=== PATIENT | male | born 1945 | race African-American/Black ===

== ENCOUNTER 2017-06-16 14:41 | Inpatient (IN) | payer MEDICARE, OTHER ==
[~2017-06-16] VITALS: Ht 198.1 cm; Wt 153.3 kg
[2017-06-16] MEDS ORDERED: SODIUM CHLORIDE FLUSH 10 ML SYR INJ PRN ×2 (16:15→23:30)
[2017-06-16] MEDS ORDERED: GABAPENTIN300 MG PO (17:45)
[2017-06-16] MEDS ORDERED: POTASSIUM CHLO20 ME1 PO (18:59)
[2017-06-16] MEDS ORDERED: PIOGLITAZONE HC45 MG PO (19:00)
[2017-06-16] MEDS ORDERED: DIGOXIN125 MCG PO (19:00)
[2017-06-16] MEDS ORDERED: DOXEPIN HCL25 MG PO (19:01)
[2017-06-16] MEDS ORDERED: AMIODARONE HCL200 MG PO (19:01)
[2017-06-16] MEDS ORDERED: MAGNESIUM OXID400 MG PO (19:02)
[2017-06-16] MEDS ORDERED: ALBUTEROL SULFAT2 MG PO (19:02)
[2017-06-16] MEDS ORDERED: BUMETANIDE1 MG PO (19:03)
[2017-06-16] MEDS ORDERED: AMBIEN10 MG PO (19:03)
[2017-06-16] MEDS ORDERED: PANTOPRAZOLE SO20 MG PO (19:04)
[2017-06-16] MEDS ORDERED: XARELTO20 MG PO (19:04)
[2017-06-16] MEDS ORDERED: NOVOLIN N100 UNIT/1 SC (19:05)
[2017-06-16 19:27] LABS: BASOPHILS % 0.5 % (0.0-1.0); EOSINOPHILS # (AUTO) 0.3 (0.0-0.4); EOSINOPHILS % 3.3 % (0.0-6.0); HEMATOCRIT 39.7 % (38.2-49.6); HEMOGLOBIN 11.5 g/dL (14.0-18.0); LYMPHOCYTES # (AUTO) 1.2 (1.0-3.2); LYMPHOCYTES % 14.5 % (18.0-39.1); MEAN CORPUSCULAR HEMOGLOBIN 22.4 pg (28-32); MEAN CORPUSCULAR VOLUME 77.2 fL (81-99); MONOCYTES # (AUTO) 0.6 (0.2-0.8); MONOCYTES % 7.6 % (4.4-11.3); NEUTROPHILS # (AUTO) 5.9 (2.1-6.9); NEUTROPHILS % 73.7 % (38.7-80.0); PLATELET COUNT 304 x10e3/uL (140-360); RED BLOOD COUNT 5.14 x10e6/uL (4.3-5.7); RED CELL DISTRIBUTION WIDTH 17.5 % (11.7-14.4)
[2017-06-16 19:45] LABS: ALBUMIN 3.7 g/dL (3.5-5.0); ALBUMIN/GLOBULIN RATIO 0.8 (0.8-2.0); ANION GAP 16.6 mmol/L (8-16); CALCIUM 9.6 mg/dL (8.4-10.2); CREATININE, SERUM 2.11 mg/dL (0.72-1.25); POTASSIUM 4.6 mmol/L (3.5-5.1)
[2017-06-16 19:52] LABS: CREATINE KINASE MB 2.1 ng/mL (0.00-5.00); TROPONIN I 0.024 ng/mL (0-0.300)
[2017-06-16] MEDS ORDERED: METHYLPREDNISOLONE SOD SUCC 125 MG/2ML VIAL IV ONE (21:30)
--- NOTE | 2017-06-16 21:47 | Diagnostic Imaging Report ---
EXAM: CHEST SINGLE (PORTABLE), AP 1 view DATE: 06/16/2017 4:05 PM Time stamp on exam: 1936 hours INDICATION: Dyspnea COMPARISON: None FINDINGS: LINES/TUBES: None LUNGS: No consolidations or edema. Bibasilar atelectasis. PLEURA: No effusions or pneumothorax. HEART AND MEDIASTINUM: Normal size and contour. BONES AND SOFT TISSUES: No acute findings. IMPRESSION: Bibasilar atelectasis. Signed by: Dr. Jayde Torres M.D. on 06/16/2017 9:44 PM
[2017-06-16] MEDS ORDERED: ALBUTEROL/IPRATROPIUM 3 ML NEB NEB ONE (22:00)
[2017-06-17 00:18] LABS: ABG PH 7.34 (7.31-7.41)
[2017-06-17 00:19] LABS: ABG PCO2 79 mmHg (41-51)
[2017-06-17 00:22] LABS: ABG HCO3 43 mmol/L (23-28); ABG PO2 20 mmHg (80-105)
[2017-06-17] MEDS: CEFTRIAXONE SOD 1 GM VIAL IV SCH (01:50)
[2017-06-17] MEDS: AZITHROMYCIN 500MG/NS 250 ML 250 ML IV SCH (01:50)
[2017-06-17] MEDS: ALBUTEROL/IPRATROPIUM 3 ML NEB NEB SCH ×5 (03:00→18:55)
[2017-06-17] MEDS ORDERED: METHYLPREDNISOLONE SOD SUCC 125 MG/2ML VIAL IV SCH (06:00)
[2017-06-17] MEDS ORDERED: DEXTROSE 50% SYRINGE 50 ML IV PRN (06:15)
[2017-06-17] MEDS ORDERED: INSULIN REGULAR, HUMAN 100 UNIT/1 ML 3ML VIAL SQ SCH (07:30)
--- NOTE | 2017-06-17 11:52 | History and Physical ---
CHIEF COMPLAINT: Near respiratory failure, pneumonia, atrial fibrillation, acute exacerbation of COPD. HISTORY OF PRESENT ILLNESS: Patient is a pleasant 71-year-old male with extensive chronic medical problems including advanced COPD with chronic oxygen usage. He also has a colostomy from previous colon/bowel resection. At baseline the patient also has atrial fibrillation. He is on Xarelto. Along with that, he also has increasing fluid retention and shortness of breath for the past week. He came in with 3+ lower extremity edema. X-ray is unreliable due to the patient's morbid obesity, body habitus. The patient is having shortness of breath even with any exertion. He is having cough, fever. The patient is admitted. PAST MEDICAL HISTORY: COPD. Atrial fibrillation on Xarelto anticoagulant therapy. Obstructive sleep apnea. Oxygen-dependent COPD. Morbid obesity. Hypertension. Diabetes with neuropathy. Diabetes type 2 on insulin therapy. Insomnia. PAST SURGICAL HISTORY: Right lung partial resection secondary to prolapse. Partial colon resection secondary to volvulus and obstruction. SOCIAL HISTORY: Patient lives at home. He does not smoke or use alcohol. No recreational drug use. ALLERGIES: TO PENICILLIN. MEDICATIONS: Albuterol, amiodarone, Bumex, digoxin, doxepin, gabapentin, magnesium oxide, Humulin NPH insulin, Protonix, Actos, potassium, Xarelto and Ambien. REVIEW OF SYSTEMS: As mentioned. Shortness of breath. PND. Lower extremity edema bilaterally. Wheezing. Fever. No focal deficit complaint. PHYSICAL EXAMINATION: VITAL SIGNS: Temperature is 98. Blood pressure is 94/53. Pulse rate is 57. [id number]. GENERAL: The patient is stable, not in any distress at this time. Oxygen support, BiPAP. HEENT: Normocephalic, atraumatic, anicteric. NECK: Supple grossly. PULMONARY: Diminished breath sounds bilaterally with coarses, rhonchi and rales at the bases. CARDIOVASCULAR: Atrial fibrillation, rate controlled. ABDOMEN: Is soft. Positive bowel sounds. Positive colostomy with stool. EXTREMITIES: 3+ edema bilaterally. NEUROLOGIC: No focal deficit. LABORATORY: WBC is 8. Hemoglobin 11.5. Hematocrit is 39. Platelet is 304. Chemistry: Sodium is 1.45, potassium 4.6, chloride 96, bicarb 37, BUN is 42, creatinine 2.1. Glucose is 92. Chest x-ray showed atelectasis. IMPRESSION: 1. Acute exacerbation of chronic obstructive pulmonary disease with respiratory failure. The patient was using BiPAP. Much improved now. 2. Bibasilar pneumonia, most likely. 3. Congestive heart failure, most likely acute on chronic diastolic dysfunction exacerbation. 4. Morbid obesity. 5. Multiple chronic baseline problems. PLAN: 2D echocardiogram. CT of the chest without IV contrast. Continue with antibiotics. Diuresis. Nebulizer treatments. Antitussive medication. DVT prophylaxis. BiPAP as needed. Consultation with Dr. Joel Moncada. Continue with the patient's treatment at this time. Will monitor the patient closely. Job#: [id number] EV
[2017-06-17] MEDS: NPH, HUMAN INSULIN ISOPHANE 100 UNIT/1 ML 3ML VIAL SQ SCH ×2 (12:02→17:24)
[2017-06-17] MEDS: INSULIN REGULAR, HUMAN 100 UNIT/1 ML 3ML VIAL SQ SCH ×3 (12:02→20:59)
--- NOTE | 2017-06-17 12:21 | Diagnostic Imaging Report ---
EXAM: CT Chest WITHOUT contrast 06/17/2017 11:11 AM INDICATION: \S\sob \[id number] \S\[id number] COMPARISON: Chest radiograph from 06/16/2017 TECHNIQUE: Chest was scanned utilizing a multidetector helical scanner from the lung apex through the level of the adrenal glands without administration of IV contrast. Absence of intravenous contrast decreases sensitivity for detection of lymphadenopathy and vascular pathology. Coronal and sagittal reformations were obtained. Routine protocol was performed. IV CONTRAST: None COMPLICATIONS: None RADIATION DOSE: Total DLP: 927.6 mGy*cm Estimated effective dose: (DLP x 0.015 x size factor) mSv CTDIvol has been reviewed. It is below the limits set by the Radiation Protocol Committee (RPC). FINDINGS: LINES/ TUBES: None. LUNGS AND AIRWAYS: Bilateral centrilobular and paraseptal emphysema with few left apical bullous. Linear scarring in the right apex. Subsegmental atelectasis in both lower lobes. Mild diffuse bilateral groundglass opacities and septal thickening suggestive of interstitial edema. 2 mm calcified granuloma in the right lower lobe. Airways are normal. PLEURA: The pleural spaces are clear. HEART AND MEDIASTINUM: The thyroid gland is normal. No mediastinal, hilar or axillary lymphadenopathy. Cardiomegaly. There is no pericardial effusion. The thoracic aorta is normal in caliber and associated with moderate calcifications in the arch. The main pulmonary artery is enlarged measuring 3.8 cm in diameter and suggestive of pulmonary hypertension. UPPER ABDOMEN: 4.7 cm exophytic cyst in the upper pole of the right kidney. BONES: Remote posttraumatic deformity of the posterior right fourth rib. SOFT TISSUES: Unremarkable. IMPRESSION: Cardiomegaly with associated mild pulmonary edema. Bibasilar atelectasis and bilateral emphysema. No consolidations. Signed by: Dr. Aminah Oliveira M.D. on 06/17/2017 12:17 PM
[2017-06-17] MEDS: FUROSEMIDE INJ 10 MG/ML 4 ML VIAL IV SCH ×2 (13:10→13:19)
--- NOTE | 2017-06-17 14:22 | Consultation ---
DATE OF CONSULTATION: PULMONARY CONSULTATION REASON FOR THE CONSULT: Pneumonia and COPD. HPI: Mr. Hawthorne is a 71-year-old male who has 75 to [id number] smoking history, used to smoke 2 to 3 packs per day for 40 years and quit 11 years ago, presented with worsening shortness of breath, cough and wheezing going on for last few days, progressively getting worse. He has known COPD and is using inhalers at home. He denies any chest pain, nausea, vomiting or diarrhea. REVIEW OF SYSTEMS GENERAL: Denies any fever or chills. HEAD: Denies any head trauma, head injury. ENT: Denies any earache, nosebleed, throat pain. CVS: Denies any chest pain. RESPIRATORY: Shortness of breath. GI: Denies any nausea or vomiting. The rest of the review systems are negative except as in HPI. PAST MEDICAL HISTORY: Hypertension, atrial fibrillation, COPD, obstructive sleep apnea, patient use home oxygen. PAST SURGICAL HISTORY: Right partial lung resection secondary to collapse, colon resection, patient has history of volvulus. FAMILY AND SOCIAL HISTORY: He lives at home. Currently does not smoke, [id number] smoker. PHYSICAL EXAMINATION VITAL SIGNS: Temperature 98.8, pulse of 74, blood pressure 121/74, respiratory rate of 18, and O2 sat of patient is 99% on 4 liters. He uses BiPAP at night. HEENT: Head atraumatic, normocephalic. Pupils reactive. NECK: Supple. No JVD. CHEST: Wheezing bilaterally. HEART: S1, S2 audible. ABDOMEN: Soft, nontender. He has colostomy. EXTREMITIES: Trace pedal edema. NEUROLOGIC: Awake and alert, following commands and responding to questions appropriately. IMAGING DATA: CT of the chest, I have reviewed the images showing evidence of emphysema, no clear-cut evidence of pneumonia. ASSESSMENT/PLAN: A 71-year-old male with history of atrial fibrillation, chronic obstructive pulmonary disease, ex-smoker, [id number] smoker, presented with worsening shortness of breath, cough, wheezing. Patient has home oxygen. CURRENT PROBLEMS 1. Chronic obstructive pulmonary disease exacerbation. 2. Morbid obesity. 3. Atrial fibrillation. 4. Hypertension. 5. Acute kidney injury, unknown baseline creatinine. PLAN 1. I will continue the patient on nebulizer treatment, Rocephin, azithromycin, and Solu-Medrol. Patient is in acute kidney injury, management per primary team. He is on potassium b.i.d., which I will discontinue as patient is in renal failure. 1. BiPAP to be used in hours of sleep and as needed. 2. Oxygen to keep the O2 sat more than or equal to 92%. Thank you for this consult. Job#: [id number] SAK
[2017-06-17] MEDS: METHYLPREDNISOLONE SOD SUCC 125 MG/2ML VIAL IV SCH ×2 (15:02→22:35)
[2017-06-17] MEDS: GABAPENTIN 300 MG CAP PO SCH ×2 (15:02→20:47)
[2017-06-17] MEDS ORDERED: POTASSIUM CHLORIDE 20 MEQ TAB CR PO SCH (17:00)
[2017-06-17] MEDS: DOXEPIN HCL 25 MG CAP PO SCH (20:47)
[2017-06-17] MEDS: RIVAROXABAN 20 MG TABLET PO SCH (20:47)
[2017-06-17] MEDS: ZOLPIDEM TARTRATE 10 MG TAB PO PRN (20:48)
[2017-06-17] MEDS: ALBUTEROL SULFATE 2 MG TAB PO SCH (22:36)
[2017-06-18] MEDS: ALBUTEROL/IPRATROPIUM 3 ML NEB NEB SCH ×7 (00:10→23:30)
[2017-06-18] MEDS: AZITHROMYCIN 500MG/NS 250 ML 250 ML IV SCH (02:15)
[2017-06-18] MEDS: CEFTRIAXONE SOD 1 GM VIAL IV SCH (02:15)
[2017-06-18] MEDS: METHYLPREDNISOLONE SOD SUCC 125 MG/2ML VIAL IV SCH (05:35)
[2017-06-18 05:47] LABS: BASOPHILS % 0.1 % (0.0-1.0); HEMATOCRIT 33.2 % (38.2-49.6); LYMPHOCYTES # (AUTO) 0.8 (1.0-3.2); LYMPHOCYTES % 6.3 % (18.0-39.1); MEAN CORPUSCULAR HEMOGLOBIN 22.6 pg (28-32); MEAN CORPUSCULAR HGB CONC 30.1 g/dL (31-35); MEAN CORPUSCULAR VOLUME 75.1 fL (81-99); MONOCYTES # (AUTO) 0.5 (0.2-0.8); MONOCYTES % 3.9 % (4.4-11.3); NEUTROPHILS # (AUTO) 11.5 (2.1-6.9); NEUTROPHILS % 89.1 % (38.7-80.0); PLATELET COUNT 281 x10e3/uL (140-360); RED BLOOD COUNT 4.42 x10e6/uL (4.3-5.7); RED CELL DISTRIBUTION WIDTH 17.2 % (11.7-14.4)
[2017-06-18 06:07] LABS: ANION GAP 13.4 mmol/L (8-16); CALCIUM 8.7 mg/dL (8.4-10.2); CREATININE, SERUM 2.17 mg/dL (0.72-1.25); POTASSIUM 4.4 mmol/L (3.5-5.1)
[2017-06-18] MEDS: INSULIN REGULAR, HUMAN 100 UNIT/1 ML 3ML VIAL SQ SCH ×4 (07:52→21:48)
[2017-06-18] MEDS: FUROSEMIDE INJ 10 MG/ML 4 ML VIAL IV SCH ×2 (07:52→13:18)
[2017-06-18] MEDS: PANTOPRAZOLE SOD 40 MG TABEC PO SCH (07:52)
[2017-06-18] MEDS: AMIODARONE HCL 200 MG TAB PO SCH (08:30)
[2017-06-18] MEDS: DIGOXIN 0.125 MG TAB PO SCH (08:30)
[2017-06-18] MEDS: MAGNESIUM OXIDE 400 MG TAB PO SCH (08:30)
[2017-06-18] MEDS: GABAPENTIN 300 MG CAP PO SCH ×3 (08:30→21:48)
[2017-06-18] MEDS: NPH, HUMAN INSULIN ISOPHANE 100 UNIT/1 ML 3ML VIAL SQ SCH ×2 (08:30→17:10)
[2017-06-18] MEDS: ALBUTEROL SULFATE 2 MG TAB PO SCH ×2 (09:00→19:43)
[2017-06-18] MEDS: METHYLPREDNISOLONE SOD SUCC 40 MG/ML VIAL IV SCH ×2 (13:18→21:49)
[2017-06-18 17:36] VITALS: BP 115/59
[2017-06-18 17:41] VITALS: BP 115/59
[2017-06-18 20:00] VITALS: BP 106/65
[2017-06-18 21:00] VITALS: BP 106/65
[2017-06-18] MEDS: RIVAROXABAN 20 MG TABLET PO SCH (21:48)
[2017-06-18] MEDS: DOXEPIN HCL 25 MG CAP PO SCH (21:48)
[2017-06-18] MEDS: ZOLPIDEM TARTRATE 10 MG TAB PO PRN (21:49)
[2017-06-19] VITALS (7 sets, daily range): BP systolic 106–152; BP diastolic 56–81
[2017-06-19] MEDS ORDERED: SODIUM CHLORIDE 0.9% 250ML 250 ML ONE (00:21)
[2017-06-19] MEDS: CEFTRIAXONE SOD 1 GM VIAL IV SCH ×2 (00:32→22:53)
[2017-06-19] MEDS: AZITHROMYCIN 500MG/NS 250 ML 250 ML IV SCH ×2 (00:32→22:53)
[2017-06-19] MEDS: ALBUTEROL/IPRATROPIUM 3 ML NEB NEB SCH ×6 (03:00→23:20)
[2017-06-19] MEDS: METHYLPREDNISOLONE SOD SUCC 40 MG/ML VIAL IV SCH ×3 (06:32→21:10)
[2017-06-19 06:59] LABS: BASOPHILS % 0.1 % (0.0-1.0); HEMATOCRIT 33.3 % (38.2-49.6); HEMOGLOBIN 9.8 g/dL (14.0-18.0); LYMPHOCYTES # (AUTO) 0.6 (1.0-3.2); LYMPHOCYTES % 4.3 % (18.0-39.1); MEAN CORPUSCULAR HEMOGLOBIN 22.3 pg (28-32); MEAN CORPUSCULAR HGB CONC 29.4 g/dL (31-35); MEAN CORPUSCULAR VOLUME 75.7 fL (81-99); MONOCYTES # (AUTO) 0.7 (0.2-0.8); NEUTROPHILS # (AUTO) 12.1 (2.1-6.9); NEUTROPHILS % 88.7 % (38.7-80.0); PLATELET COUNT 280 x10e3/uL (140-360); RED CELL DISTRIBUTION WIDTH 17.5 % (11.7-14.4)
[2017-06-19] MEDS: PANTOPRAZOLE SOD 40 MG TABEC PO SCH (07:30)
[2017-06-19] MEDS: INSULIN REGULAR, HUMAN 100 UNIT/1 ML 3ML VIAL SQ SCH ×4 (07:30→21:10)
[2017-06-19 07:56] LABS: ANION GAP 15.3 mmol/L (8-16); CALCIUM 8.4 mg/dL (8.4-10.2); CREATININE, SERUM 1.82 mg/dL (0.72-1.25); POTASSIUM 4.3 mmol/L (3.5-5.1)
[2017-06-19] MEDS: FUROSEMIDE INJ 10 MG/ML 4 ML VIAL IV SCH ×2 (08:00→12:00)
[2017-06-19] MEDS: GABAPENTIN 300 MG CAP PO SCH ×3 (09:00→21:10)
[2017-06-19] MEDS: DIGOXIN 0.125 MG TAB PO SCH (09:00)
[2017-06-19] MEDS: AMIODARONE HCL 200 MG TAB PO SCH (09:00)
[2017-06-19] MEDS: NPH, HUMAN INSULIN ISOPHANE 100 UNIT/1 ML 3ML VIAL SQ SCH ×2 (09:00→17:00)
[2017-06-19] MEDS: MAGNESIUM OXIDE 400 MG TAB PO SCH (09:00)
[2017-06-19] MEDS: ALBUTEROL SULFATE 2 MG TAB PO SCH ×2 (09:00→17:00)
[2017-06-19] MEDS: RIVAROXABAN 20 MG TABLET PO SCH (21:10)
[2017-06-19] MEDS: DOXEPIN HCL 25 MG CAP PO SCH (21:10)
[2017-06-19] MEDS: ZOLPIDEM TARTRATE 10 MG TAB PO PRN (21:18)
[2017-06-20] VITALS (7 sets, daily range): BP systolic 113–133; BP diastolic 56–73
[2017-06-20] MEDS: ALBUTEROL/IPRATROPIUM 3 ML NEB NEB SCH ×5 (03:40→21:30)
[2017-06-20] MEDS: METHYLPREDNISOLONE SOD SUCC 40 MG/ML VIAL IV SCH ×2 (06:07→14:00)
[2017-06-20] MEDS: PANTOPRAZOLE SOD 40 MG TABEC PO SCH (07:30)
[2017-06-20] MEDS: INSULIN REGULAR, HUMAN 100 UNIT/1 ML 3ML VIAL SQ SCH ×4 (07:30→21:00)
[2017-06-20] MEDS: FUROSEMIDE INJ 10 MG/ML 4 ML VIAL IV SCH ×2 (08:00→12:00)
[2017-06-20] MEDS: GABAPENTIN 300 MG CAP PO SCH ×3 (09:00→17:54)
[2017-06-20] MEDS: ALBUTEROL SULFATE 2 MG TAB PO SCH ×2 (09:00→17:53)
[2017-06-20] MEDS: DIGOXIN 0.125 MG TAB PO SCH (09:00)
[2017-06-20] MEDS: NPH, HUMAN INSULIN ISOPHANE 100 UNIT/1 ML 3ML VIAL SQ SCH ×2 (09:00→17:00)
[2017-06-20] MEDS: AMIODARONE HCL 200 MG TAB PO SCH (09:00)
[2017-06-20] MEDS: MAGNESIUM OXIDE 400 MG TAB PO SCH (09:00)
[2017-06-20 13:13] LABS: ANION GAP 16.2 mmol/L (8-16); CALCIUM 8.5 mg/dL (8.4-10.2); CREATININE, SERUM 1.96 mg/dL (0.72-1.25); POTASSIUM 5.2 mmol/L (3.5-5.1)
[2017-06-20] MEDS ORDERED: SOD POLYSTYRENE SULFONATE SUSP 15 GM/60 ML BTL PO ONE (15:15)
--- NOTE | 2017-06-20 15:18 | Consultation ---
DATE OF CONSULTATION: June 20, 2017 NEPHROLOGY CONSULT REASON FOR THE CONSULT: Acute versus chronic kidney disease. HISTORY OF PRESENT ILLNESS: This is a 71-year-old male, very pleasant, who is known to have multiple medical problems including hypertension, COPD, AFib, obstructive sleep apnea on CPAP and 24-hour oxygen, ex-smoker, and as per the patient he was told he has CKD but he never made it to a kidney doctor. As an outpatient, he follows with Dr. Carmine Palencia as is primary care. He is admitted for a few days of worsening shortness of breath. He could not walk even from his bed to the bathroom without getting short of breath and dyspnea on minimal exertion along with orthopnea and cough with productive yellowish sputum. He came for further evaluation, for which he is admitted for COPD exacerbation, was put on BiPAP and now on oxygen, and he is getting antibiotics and being seen by Pulmonary. His creatinine was elevated. Thus we are consulted. REVIEW OF SYSTEMS: Negative otherwise. PAST MEDICAL HISTORY: As mentioned above. PAST SURGICAL HISTORY: Status post right partial lung resection secondary to atelectasis and collapse, colon resection secondary to volvulus with colostomy. FAMILY HISTORY: Positive for hypertension. SOCIAL HISTORY: Ex-smoker. No alcohol, no IV drug abuse. ALLERGIES: PENICILLIN. VITAL SIGNS: Blood pressure 121/58, heart rate is 83, temperature 97. PHYSICAL EXAMINATION GENERAL APPEARANCE: No acute distress x3. HEAD, EARS, EYES, NECK: No lymphadenopathy HEART: Regular rate and rhythm. LUNGS: Bibasilar rales. ABDOMEN: Soft, nontender. EXTREMITIES: +1 edema. LABS: His white count was 13.6, hemoglobin 9.8. ABGs: His pCO2 was 79 before putting him on BiPAP. His sodium 142 yesterday, potassium 4.3. His BUN is 16. Creatinine is 1.8, down from 2.1. His troponin negative. BNP 73. Albumin 3.7. ASSESSMENT AND PLAN 1. Acute versus chronic kidney disease. I am suspecting CKD in the setting of hypertension and diabetes, nephrosclerosis. The patient was told he has CKD and needs to follow with a kidney doctor, but he never made it to a nephrology clinic. I am going to call his PCP tomorrow, Dr. Carmine Palencia, to get some records about his baseline, his creatinine. At this time, creatinine came down from 2.1 to 1.8, relatively stable. Avoid nephrotoxins. Adjust antibiotics to current GFR. Check fraction excretion of sodium and renal ultrasound. 2. Chronic obstructive pulmonary disease exacerbation with productive cough. He is on antibiotics, Rocephin and azithromycin per Pulmonary, and nebulizer treatment, off the BiPAP on nasal cannula oxygen. 3. Diastolic congestive heart failure with pulmonary edema on CT scan. He is on Lasix 40 b.i.d., which we are going probably to titrate down by tomorrow. He was on Bumex as an outpatient. Add strict ins and outs, and the patient so far is recording multiple frequent urination in the urinal. Monitor urine output. 4. Electrolytes are within range. His potassium was 4.6 on admission. He is off KCl, now is 4.3. Monitor closely. He is on magnesium oxide, which we are going to check magnesium level tomorrow. 5. Atrial fibrillation, on Xarelto. 6. Blood pressure is controlled. 7. Diabetes, on insulin. Thank you for the consult. We will update the primary team for further recommendations. Job#: [id number] EV
[2017-06-20] MEDS: CEFEPIME HCL 1 GM VIAL IV SCH (17:53)
[2017-06-20] MEDS ORDERED: METHYLPREDNISOLONE SOD SUCC 40 MG/ML VIAL IV SCH (19:00)
[2017-06-20] MEDS: DOXEPIN HCL 25 MG CAP PO SCH (21:00)
[2017-06-20] MEDS: RIVAROXABAN 20 MG TABLET PO SCH (21:00)
[2017-06-20] MEDS: ZOLPIDEM TARTRATE 10 MG TAB PO PRN (21:19)
[2017-06-21] VITALS (8 sets, daily range): BP systolic 107–135; BP diastolic 57–70
[2017-06-21] MEDS: CEFEPIME HCL 1 GM VIAL IV SCH ×2 (05:00→17:25)
[2017-06-21] MEDS: ALBUTEROL/IPRATROPIUM 3 ML NEB NEB SCH ×4 (07:12→20:15)
[2017-06-21 07:20] LABS: HEMATOCRIT 35.1 % (38.2-49.6); HEMOGLOBIN 10.1 g/dL (14.0-18.0); LYMPHOCYTES # (AUTO) 0.5 (1.0-3.2); LYMPHOCYTES % 4.9 % (18.0-39.1); MEAN CORPUSCULAR HEMOGLOBIN 22.1 pg (28-32); MEAN CORPUSCULAR HGB CONC 28.8 g/dL (31-35); MONOCYTES % 9.1 % (4.4-11.3); NEUTROPHILS % 85.2 % (38.7-80.0); PLATELET COUNT 277 x10e3/uL (140-360); RED BLOOD COUNT 4.56 x10e6/uL (4.3-5.7); RED CELL DISTRIBUTION WIDTH 17.3 % (11.7-14.4)
[2017-06-21 07:39] LABS: ANION GAP 12.6 mmol/L (8-16); CALCIUM 8.4 mg/dL (8.4-10.2); CREATININE, SERUM 1.7 mg/dL (0.72-1.25); MAGNESIUM 2.8 MG/DL (1.3-2.1); PHOSPHORUS 3.8 MG/DL (2.3-4.7); POTASSIUM 4.6 mmol/L (3.5-5.1)
[2017-06-21] MEDS: NPH, HUMAN INSULIN ISOPHANE 100 UNIT/1 ML 3ML VIAL SQ SCH ×2 (09:00→16:52)
[2017-06-21] MEDS: METHYLPREDNISOLONE SOD SUCC 40 MG/ML VIAL IV SCH ×2 (09:04→17:25)
[2017-06-21] MEDS: FUROSEMIDE INJ 10 MG/ML 4 ML VIAL IV SCH ×2 (09:04→12:55)
[2017-06-21] MEDS: DOXYCYCLINE HYCLATE TABLET 100 MG TAB PO SCH ×2 (09:04→17:25)
[2017-06-21] MEDS: MAGNESIUM OXIDE 400 MG TAB PO SCH (09:04)
[2017-06-21] MEDS: AMIODARONE HCL 200 MG TAB PO SCH (09:04)
[2017-06-21] MEDS: INSULIN REGULAR, HUMAN 100 UNIT/1 ML 3ML VIAL SQ SCH ×4 (09:04→21:19)
[2017-06-21] MEDS: PANTOPRAZOLE SOD 40 MG TABEC PO SCH (09:04)
[2017-06-21] MEDS: ALBUTEROL SULFATE 2 MG TAB PO SCH ×2 (09:04→17:25)
[2017-06-21] MEDS: GABAPENTIN 300 MG CAP PO SCH ×3 (09:04→21:19)
[2017-06-21] MEDS: DIGOXIN 0.125 MG TAB PO SCH (09:04)
--- NOTE | 2017-06-21 15:45 | Diagnostic Imaging Report ---
EXAM: Renal Ultrasound INDICATION: \S\JEEVAN \[id number] \S\[id number] COMPARISON: Chest CT 06/17/2017 TECHNIQUE: Transverse and longitudinal images of the kidneys and bladder were obtained. FINDINGS: Right Kidney: Size: 10.8 x 5.8 x 5.2 cm Echogenicity: Normal Parenchymal thickness: Normal Collecting system: No hydronephrosis Stones: Superior pole 5.4 x 4.6 x 4.8 cm cyst with partially visualized thin septation. Cyst/Mass: None Left Kidney: Size: 11.1 x 6.3 x 5.5 cm Echogenicity: Normal Parenchymal thickness: Normal Collecting system: No hydronephrosis Stones: None Cyst/Mass: None Bladder: Normal. Prevoid bladder volume of approximately 369 cc. IMPRESSION: No hydronephrosis. Right renal 5.4 cm minimally complex cyst. Signed by: DR. Galen Hyde MD on 06/21/2017 3:41 PM
--- NOTE | 2017-06-21 16:29 | Diagnostic Imaging Report ---
EXAM: VENTILATION PERFUSION LUNG SCAN INDICATION: 71 M with chest pain; COPD exacerbation COMPARISON: CT chest 06/17/2017; chest radiograph 06/16/2017 DISCUSSION: Xenon-133 gas 20 mCi was administered via inhalation. Dynamic images of the lungs in the posterior projection were obtained through single breath and washout phases. Distribution of tracer activity is slightly irregular throughout the lungs. A large nonsegmental ventilation abnormality is seen in the left lung base that fills in during the equilibrium phase. Washout is diffusely delayed with diffuse air trapping. Perfusion images of the lungs in multiple projections were obtained following intravenous administration of 6 mCi of Tc-99m MAA. Distribution of tracer is irregular throughout the lungs. A large nonsegmental perfusion abnormality is seen in the left lung base and matches the ventilation abnormality. No segmental perfusion defects are seen. The contours of the lungs are well demarcated. The cardiac silhouette is enlarged. IMPRESSION: 1. Scan findings represent a VERY LOW probability for acute pulmonary embolic disease based on the PIOPED II criteria. 2. Large matched nonsegmental ventilation and perfusion abnormality likely represents emphysematous disease given fill-in during the equilibrium phase of ventilation, less likely pneumonia given CT findings. Signed by: Dr. Neha Moraes M.D. on 06/21/2017 4:25 PM
[2017-06-21] MEDS: DOXEPIN HCL 25 MG CAP PO SCH (21:19)
[2017-06-21] MEDS: RIVAROXABAN 20 MG TABLET PO SCH (21:19)
[2017-06-22] VITALS (8 sets, daily range): BP systolic 105–141; BP diastolic 58–81
[2017-06-22] MEDS: CEFEPIME HCL 1 GM VIAL IV SCH ×2 (04:59→17:07)
[2017-06-22] MEDS: ALBUTEROL/IPRATROPIUM 3 ML NEB NEB SCH ×5 (07:00→23:00)
[2017-06-22 07:42] LABS: ANION GAP 11.6 mmol/L (8-16); CALCIUM 8.6 mg/dL (8.4-10.2); CREATININE, SERUM 1.63 mg/dL (0.72-1.25); MAGNESIUM 2.8 MG/DL (1.3-2.1); PHOSPHORUS 3.7 MG/DL (2.3-4.7); POTASSIUM 4.6 mmol/L (3.5-5.1)
[2017-06-22] MEDS: NPH, HUMAN INSULIN ISOPHANE 100 UNIT/1 ML 3ML VIAL SQ SCH ×2 (08:39→16:44)
[2017-06-22] MEDS: FUROSEMIDE INJ 10 MG/ML 4 ML VIAL IV SCH (08:42)
[2017-06-22] MEDS: GABAPENTIN 300 MG CAP PO SCH ×3 (08:55→20:51)
[2017-06-22] MEDS: METHYLPREDNISOLONE SOD SUCC 40 MG/ML VIAL IV SCH ×2 (08:55→17:07)
[2017-06-22] MEDS: AMIODARONE HCL 200 MG TAB PO SCH (08:55)
[2017-06-22] MEDS: ALBUTEROL SULFATE 2 MG TAB PO SCH ×2 (08:55→17:07)
[2017-06-22] MEDS: INSULIN REGULAR, HUMAN 100 UNIT/1 ML 3ML VIAL SQ SCH ×4 (08:55→20:52)
[2017-06-22] MEDS: DIGOXIN 0.125 MG TAB PO SCH (08:55)
[2017-06-22] MEDS: PANTOPRAZOLE SOD 40 MG TABEC PO SCH (08:55)
[2017-06-22] MEDS: DOXYCYCLINE HYCLATE TABLET 100 MG TAB PO SCH ×2 (08:55→17:07)
[2017-06-22] MEDS ORDERED: ACETAZOLAMIDE 250 MG TAB PO SCH (12:30)
[2017-06-22 16:13] LABS: ABG PH 7.37 (7.31-7.41)
[2017-06-22 16:14] LABS: ABG HCO3 40 mmol/L (23-28); ABG PCO2 69 mmHg (41-51); ABG PO2 83 mmHg (80-105)
[2017-06-22] MEDS ORDERED: ACETAZOLAMIDE 500 MG CAP PO SCH (17:00)
[2017-06-22] MEDS: ACETAZOLAMIDE 500 MG CAP PO SCH (17:07)
[2017-06-22] MEDS: ZOLPIDEM TARTRATE 10 MG TAB PO PRN (20:51)
[2017-06-22] MEDS: RIVAROXABAN 20 MG TABLET PO SCH (20:51)
[2017-06-22] MEDS: DOXEPIN HCL 25 MG CAP PO SCH (20:51)
[2017-06-23] VITALS: BP 134/72
[2017-06-23 04:00] VITALS: BP 126/77
[2017-06-23] MEDS: CEFEPIME HCL 1 GM VIAL IV SCH ×2 (04:35→17:24)
[2017-06-23 07:12] LABS: ANION GAP 12.5 mmol/L (8-16); CALCIUM 8.5 mg/dL (8.4-10.2); CREATININE, SERUM 1.56 mg/dL (0.72-1.25); POTASSIUM 4.5 mmol/L (3.5-5.1)
[2017-06-23] MEDS: PANTOPRAZOLE SOD 40 MG TABEC PO SCH (07:30)
[2017-06-23 08:17] VITALS: BP 117/73
[2017-06-23] MEDS ORDERED: FUROSEMIDE INJ 10 MG/ML 4 ML VIAL IV SCH (09:00)
[2017-06-23] MEDS: NPH, HUMAN INSULIN ISOPHANE 100 UNIT/1 ML 3ML VIAL SQ SCH ×2 (09:00→17:00)
[2017-06-23] MEDS: DIGOXIN 0.125 MG TAB PO SCH (09:55)
[2017-06-23] MEDS: INSULIN REGULAR, HUMAN 100 UNIT/1 ML 3ML VIAL SQ SCH ×3 (09:55→17:04)
[2017-06-23] MEDS: GABAPENTIN 300 MG CAP PO SCH ×2 (09:55→15:00)
[2017-06-23] MEDS: ACETAZOLAMIDE 500 MG CAP PO SCH (09:55)
[2017-06-23] MEDS: METHYLPREDNISOLONE SOD SUCC 40 MG/ML VIAL IV SCH ×2 (09:55→17:24)
[2017-06-23] MEDS: AMIODARONE HCL 200 MG TAB PO SCH (09:55)
[2017-06-23] MEDS: DOXYCYCLINE HYCLATE TABLET 100 MG TAB PO SCH ×2 (09:56→17:24)
[2017-06-23] MEDS: ALBUTEROL/IPRATROPIUM 3 ML NEB NEB SCH ×2 (10:00→10:05)
[2017-06-23 10:45] VITALS: BP 117/73
[2017-06-23 14:06] VITALS: BP 112/57
[2017-06-23] MEDS ORDERED: BUMETANIDE 1 MG TAB PO SCH (17:00)
[2017-06-23 17:05] VITALS: BP 126/57
--- NOTE | 2017-06-23 19:39 | Discharge Summary ---
Consultants: Dr. Prudencio Syed and Dr. Joel Moncada. FINAL DIAGNOSES: 1. Acute diastolic dysfunction, congestive heart failure associated with bilateral pulmonary edema. 2. Acute exacerbation of chronic obstructive pulmonary disease with hypoxia. 3. 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 4. Morbid obesity. 5. Baseline hypercapnic acute on chronic exacerbation. 6. Obstructive sleep apnea. 7. Pulmonary hypertension. SUMMARY: Patient is a 71-year-old male with extensive chronic medical problems including pulmonary hypertension and also with obstructive sleep apnea who came in with basically significant bilateral lower extremity swelling and pleural effusion with pulmonary edema. Patient basically has acute on chronic diastolic dysfunction, congestive heart failure. Patient had multiple imaging done. CT scan was negative for blood clot. A CT of the chest shows cardiomegaly, associated pulmonary edema with bilateral atelectasis and bilateral emphysema. The patient has significant atelectasis consistent with his increasing shortness of breath and symptoms. He is slightly anemic, but he does have chronic kidney disease. On admission, his BUN and creatinine was 42 and 2.1 with sodium of 145. Hemoglobin A1c 6.3. Multiple other tests done including echocardiogram, ejection fraction 60%. Carotid Doppler otherwise unremarkable. Other imaging including renal ultrasound showed that the patient has no hydronephrosis. He had a right renal 5.4 cm minimal complex cystic. Patient stable at this time. He is comfortable. He is on oxygen support. Patient will require antibiotics for his infection. He was also required diuretic as well. Physical therapy limited at this time due to increasing shortness of breath. The patient was transferred to long-term acute care [facility] to continue his treatment. The patient is otherwise stable. Will transfer today and will follow up with the patient the next day. The patient is stable. Discussed with patient and his family. Job#: [id number]
== END 2017-06-23 19:46 | DRG 291 ==
LOC: ER 14:41 → ERHOLD 06-17 01:42 → MED/SURG 06-18 17:12
PROVIDERS: ADMIT Internal Medicine; ATTEND Internal Medicine
DX: I13.0 Hypertensive heart and chronic kidney disease with heart failure and stage 1 through stage 4 chronic kidney disease, or unspecified chronic kidney disease (principal); I50.33 Acute on chronic diastolic (congestive) heart failure; J96.22 Acute and chronic respiratory failure with hypercapnia; Z99.81 Dependence on supplemental oxygen; J44.1 Chronic obstructive pulmonary disease with (acute) exacerbation; N18.3 Chronic kidney disease, stage 3 (moderate); G47.33 Obstructive sleep apnea (adult) (pediatric); E66.01 Morbid (severe) obesity due to excess calories; Z68.39 Body mass index [BMI] 39.0-39.9, adult; D64.9 Anemia, unspecified; Z87.891 Personal history of nicotine dependence; I48.91 Unspecified atrial fibrillation; Z79.01 Long term (current) use of anticoagulants; Z79.4 Long term (current) use of insulin; Z88.0 Allergy status to penicillin; Z93.3 Colostomy status; Z91.19 Patient's noncompliance with other medical treatment and regimen; R09.02 Hypoxemia
CPT/HCPCS: 36415; 36600; 71010; 71250; 76770; 78582; 80048; 80053; 82550; 82553; 82805; 82948; 83036; 83735; 83880; 84100; 84132; 84443; 84484; 85025; 93005; 93306; 93970; 94640; 94660; 96372; 96374; 96376; 97139; 99285; A9540; A9558; J0456; J0692; J0696; J1940; J2920; J2930; J7050